=== PATIENT | female | born 1985 | race Caucasian/White ===

== ENCOUNTER 2017-08-22 20:37 | Emergency (ER) | payer OTHER ==
[~2017-08-22] VITALS: Ht 170.2 cm; Wt 71.2 kg
[2017-08-22 20:37] VITALS: BP 121/79
[2017-08-22] MEDS ORDERED: IBUPROFEN 600 MG TABLET. PO ONE (21:00)
[2017-08-22] MEDS ORDERED: AZITHROMYCIN 250 MG TABLET. PO ONE (21:00)
[2017-08-22] MEDS ORDERED: AZIT250T PO (21:07)
[2017-08-22] MEDS ORDERED: IBUP600T16 PO (21:07)
--- NOTE | 2017-08-22 21:08 | PHYS DOC ---
Past History Past Medical History: No Pertinent History Past Surgical History: No Surgical History Alcohol Use: Occasionally Drug Use: None Social History Narrative: Home with family Adult General Chief Complaint Chief Complaint: SORE THROAT HPI HPI Patient is a 32-year-old female who presents with a complaint of sore throat, sinus congestion, nonproductive cough times several days. Patient has any fevers shakes chills. Patient has any abdominal pain dysuria frequency urgency. Patient is tolerating by mouth's. Patient has 3 children only on his head which is approximately 2 and half month. Patient reports she is tolerating by mouth's well. Patient has any nuchal rigidity. Patient has no signs of be consistent with meningitis. Review of systems: Constitutional: Denies fever or chills Eyes: Denies change in visual acuity, redness, or eye pain HENT: Denies nasal congestion or sore throat All other systems were reviewed and found to be within normal limits, except as documented in this note. Physical exam Constitutional: Well developed, well nourished, no acute distress, non-toxic appearance. HENT: Normocephalic, atraumatic, bilateral external ears normal, oropharynx moist, no oral exudates, nose normal. Eyes: PERRLA, EOMI, conjunctiva normal, no discharge. Neck: Normal range of motion, no tenderness, supple, no stridor. Cardiovascular:Heart rate regular rhythm, Lungs & Thorax: Bilateral breath sounds clear to auscultation Abdomen: Bowel sounds normal, soft, no tenderness, no masses, no pulsatile masses. Skin: Warm, dry, no erythema, no rash. Back: No tenderness, no CVA tenderness. Extremities: No tenderness, no cyanosis, no clubbing, ROM intact, no edema. Neurologic: Alert and oriented X 3, normal motor function, normal sensory function, no focal deficits noted. Psychologic: Affect normal, judgement normal, mood normal. Assessment and plan: 1. 32-year-old female who presents here today with sinus symptoms consistent with sinusitis, bronchitis, viral URI, pharyngitis. Patient will be started on Zithromax and ibuprofen. Patient's clinically hemodynamically stable for discharged home at this time. Current Medications Current Medications Current Medications Medications (Trade) Dose Ordered Sig/Elidia Start Time Stop Time Status Last Admin Dose Admin Azithromycin (Zithromax) 500 mg 1X ONCE 08/22/17 21:00 08/22/17 21:01 UNV Ibuprofen (Motrin) 600 mg 1X ONCE 08/22/17 21:00 08/22/17 21:01 UNV Allergies Allergies Allergies Coded Allergies Type Severity Reaction Last Updated Verified latex Allergy Unknown 08/22/17 Yes Current Patient Data Vital Signs Vital Signs Date Time Temp Pulse Resp B/P (MAP) Pulse Ox O2 Delivery O2 Flow Rate FiO2 08/22/17 20:37 98.1 79 20 97 Room Air EKG EKG [] Radiology/Procedures Radiology/Procedures [] Course & Med Decision Making Course & Med Decision Making Pertinent Labs and Imaging studies reviewed. (See chart for details) [] Dragon Disclaimer Dragon Disclaimer This electronic medical record was generated, in whole or in part, using a voice recognition dictation system. Departure Departure: Impression: Primary Impression: Pharyngitis Disposition: HOME, SELF-CARE Condition: IMPROVED Referrals: PCP,UNKNOWN (PCP) Patient Instructions: Acute Bronchitis, Viral and Bacterial Pharyngitis Scripts Azithromycin (ZITHROMAX) 250 Mg Tablet 250 MG PO DAILY for ANTI-BIOTIC for 4 Days, #4 TAB 0 Refills Prov: RAFFI WATT MD 08/22/17 Ibuprofen (IBUPROFEN) 600 Mg Tablet 600 MG PO QID Y for PAIN, #20 Prov: RAFFI WATT MD 08/22/17 RAFFI WATT MD Aug 22, 2017 21:07
== END 2017-08-22 21:00 | disposition home or self-care (01) ==
LOC: ER 20:37
DX: J02.9 Acute pharyngitis, unspecified (principal); Z91.040 Latex allergy status
CPT/HCPCS: 99283; J0456